=== PATIENT | female | born 1975 | race Caucasian/White ===

== ENCOUNTER 2018-10-04 22:31 | Emergency (ER) | payer OTHER ==
[~2018-10-04] VITALS: Ht 162.6 cm; Wt 136.5 kg
[~2018-10-04 22:31] MED LIST: ASPIRIN81 M2 PO; ATENOLOL 25 MG25 M1 PO; BRINTELLIX20 MG PO; FLEXERIL PO; IBUPROFEN 600600 M1 PO; IRON325 PO; LAMICTAL100 MG PO; METFORMIN HCL500 MG PO; NEURONTIN 300M300 M2 PO; PRILOSEC 20 MG20 MG PO; SYNTHROID100 MC1 PO; TRAZODONE HCL100 MG PO; WELCHOL 625 MG625 MG PO; ZOCOR20 MG PO
[2018-10-04] MEDS ORDERED: KEFLEX500 M1 PO (23:49)
[2018-10-04] MEDS ORDERED: ZOFRAN ODT4 MG PO (23:49)
[2018-10-05 00:06] VITALS: BP 146/86
== END 2018-10-05 00:06 | disposition home or self-care (01) ==
LOC: ER 22:31
DX: S30.95XA Unspecified superficial injury of vagina and vulva, initial encounter (principal); L08.89 Other specified local infections of the skin and subcutaneous tissue; E11.9 Type 2 diabetes mellitus without complications; Z88.5 Allergy status to narcotic agent; Z88.8 Allergy status to other drugs, medicaments and biological substances; Z90.49 Acquired absence of other specified parts of digestive tract; X58.XXXA Exposure to other specified factors, initial encounter; Y92.89 Other specified places as the place of occurrence of the external cause; Y93.89 Activity, other specified; Y99.8 Other external cause status

== ENCOUNTER → 2021-03-27 | Day surgery (SDC) | payer OTHER ==
[~2021-03-27] VITALS: Ht 162.6 cm; Wt 139.3 kg
[~2021-03-27] MED LIST changes: +ASPIRIN EC81 M1 PO; +HYDROXYZINE HCL25 M2 PO; +KEFLEX500 M1 PO; +OMEPRAZOLE40 MG PO; +OZEMPIC1 MG/0.75 SUBQ; +TRESIBA FL200 UNIT/1 SUBQ; +V-GO 401 EACH SUBQ; +XOPENEX HFA15 GM INH; +ZOFRAN ODT4 MG PO
--- NOTE | 2021-03-31 06:17 | O ---
[facility] [place] [address] OPERATIVE REPORT Name: EMANUEL RILEY Room #: REG [facility]..#: [id number] Admission: 03/27/21 Attend Phys: Bladimir Guevara MD Discharge: Date of : 79 Report #: [id number] THIS REPORT FOR: cc: Julissa Machado MD,Bladimir Rainey MD, MD ~ DOC #: [id number] cc: Julissa Machado MD, MD Bladimir Weinberg MD DATE OF SERVICE: 03/27/2021 PREOPERATIVE DIAGNOSIS: Lesion of left lower lid and medial canthus. POSTOPERATIVE DIAGNOSIS: Lesion of left lower lid and medial canthus. PROCEDURE PERFORMED: Excision of lesion of left lower lid and medial canthus with myocutaneous flap repair of defect. SURGEON: Bladimir Guevara MD VAMPER: None. ANESTHESIA: MAC. COMPLICATIONS: None. INDICATIONS FOR SURGERY: This pleasant 46-year-old woman has a recurrent cystic lesion in her medial left lower lid extending onto the canthus directly overlies the lacrimal sac. The lesion appears to be sudoriferous inclusion cyst. She presents today for excision of this lesion with repair of that ensuing defect. Informed consent was obtained to include but not limited to the potential risk for loss of vision, bleeding, infection, failure to improve the problem, the potential need for further surgery or treatment. DESCRIPTION OF PROCEDURE: The patient was taken to the operating room where 2% Xylocaine with epinephrine mixed with Marcaine and Wydase was administered transcutaneously to the left medial canthus, the glabella, the medial left upper lid and the left lower lid. The patient was subsequently prepped and draped in the usual sterile fashion. The lesion was then inspected and an incision was made around its base 360 degrees very delicately to ensure that the cyst wall itself was not entered. The dissection was quite challenging because the lesion was part of the skin more superficially. The dissection was then carried down onto the lacrimal sac tissue where it was very delicately . The lacrimal sac itself was not violated. The lesion was able to be excised en bloc [facility] [address] [place] [address] OPERATIVE REPORT Name: EMANUEL RILEY Room #: REG [employer].#: [id number] Admission: 03/27/21 Attend Phys: Bladimir Guevara MD Discharge: Date of : 79 Report #: [id number] and not violated. This left a significant defect in her medial left lower lid. A myocutaneous flap was then developed laterally to be rotated medially to correct that lack of tissue. Hemostasis was then re-achieved. The flap was then advanced and secured with multiple interrupted 6-0 plain gut suture, some of which were based off of the periosteum to ensure that the area did not web. The wound was then cleaned and dressed with erythromycin ophthalmic ointment. The patient subsequently transported to the recovery area having tolerated the procedure well with no anesthetic or operative complications being noted. MD JACINDA Castillo/RONALDO <ELECTRONICALLY SIGNED> By: Bladimir Guevara MD 03/31/21 0617 [id number] Bladimir Guevara MD /nt
--- NOTE | 2021-03-31 18:06 | PATH ---
[facility] [address] [place] [address] PATHOLOGY RPT PROCEDURE Name: EMANUEL RILEY Room #: REG [facility]..#: [id number] Admission: 03/27/21 Date of : 79 Discharge: Report #: [id number] Path Case #: [id number] [facility] Accession Number: [id number] . 01 Material submitted: . eye - LEFT EYE LESION. Modifiers: left . 01 Clinical history: . EXCISION LESION EYELID CYSTIC LESION . 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 - There is no evidence of atypia or malignancy. . (SHA:mmlindsay; 03/31/2021) [facility] 03/31/2021 1515 Local . 01 Electronically signed: . Mauricio Singh MD, Pathologist NPI- [id number] . 01 Gross description: . Received in formalin labeled "Emanuel Riley left eye lesion" is irregular, serra pink cystic structure measuring 1.1 x 0.9 x 0.9 cm. The external surface and is serra brown serra-brown and roughened. The specimen is sectioned to reveal a smooth lining without papillary excrescences or areas of thickening grossly identified and containing a clear colorless fluid. The specimen is entirely submitted in cassette A1.([facility]; 03/29/2021) GZA/GZA 03/29/2021 1036 Local . 01 Pathologist provided ICD-10: L72.0 . 01 CPT . 942816 Specimen Comment: A courtesy copy of this report has been sent to [phone], [phone] Specimen Comment: [phone] Specimen Comment: Report sent to / DR MOODY Performed at: [address], [place], [place] [id number] MD Mauricio Singh MD Phone: [phone]
== END | disposition home or self-care (01) ==
LOC: OR 07:07
PROVIDERS: ATTEND Ophthalmology
DX: D23.122 Other benign neoplasm of skin of left lower eyelid, including canthus (principal); E11.9 Type 2 diabetes mellitus without complications; E78.5 Hyperlipidemia, unspecified; F31.9 Bipolar disorder, unspecified; F41.9 Anxiety disorder, unspecified; J45.909 Unspecified asthma, uncomplicated; G47.30 Sleep apnea, unspecified; K21.9 Gastro-esophageal reflux disease without esophagitis; Z98.890 Other specified postprocedural states; Z79.899 Other long term (current) drug therapy; Z88.8 Allergy status to other drugs, medicaments and biological substances
CPT/HCPCS: 50010; 50101; 50386; 50398; 51636; 56531; 62110; 62850; 70005